=== PATIENT | male | born 1925 | race Caucasian/White ===

== ENCOUNTER 2017-06-11 14:15 | Emergency (ER) | payer OTHER ==
[~2017-06-11] VITALS: Ht 172.7 cm; Wt 77.5 kg
[2017-06-11 14:43] LABS: GLUCOSE,POINT OF CARE 76 MG/DL (70-110)
[2017-06-11] MEDS ORDERED: NOREPINEPHRINE 4 MG/D5%-WATER 250 ML IV PRN ×2 (14:44)
[2017-06-11] MEDS ORDERED: SODIUM CHLORIDE 0.9% 1,000 ML IV ONE ×2 (14:45→15:30)
[2017-06-11] MEDS ORDERED: FURO20 PO (15:06)
[2017-06-11] MEDS ORDERED: GLIP5 PO (15:06)
[2017-06-11] MEDS ORDERED: FINA5TAB41 PO (15:06)
[2017-06-11] MEDS ORDERED: METO25 PO (15:06)
[2017-06-11] MEDS ORDERED: SIMV-260 PO (15:06)
[2017-06-11 15:29] LABS: HEMOGLOBIN 12.6 g/dL (13.5-17.5); MEAN CORPUSCULAR HEMOGLOBIN 25.6 pg (26.0-34.0); MEAN CORPUSCULAR HGB CONC 32.3 G/dL (31.0-37.0); MEAN CORPUSCULAR VOLUME 79 fL (80-100); PLATELET COUNT (AUTO) 103 K/uL (150-450); RED BLOOD CELL COUNT(AUTO) 4.93 MIL/uL (4.50-5.90); RED CELL DISTRIBUTION WIDTH 19.9 % (11.5-14.5)
[2017-06-11 15:40] LABS: ANION GAP 16 mmol/L (8-16); CALCIUM, TOTAL 8.1 mg/dL (8.8-10.5); CARBON DIOXIDE 19 mmol/L (22-29); CHLORIDE 104 mmol/L (98-107); CREATININE 3.37 mg/dL (0.60-1.30); GLOMERULAR FILTR. RATE CALC 17 mL/min (>60); GLUCOSE,RANDOM 69 mg/dL (70-110); POTASSIUM 3.5 mmol/L (3.5-5.1); SODIUM SERUM 139 mmol/L (136-145); UREA NITROGEN, BLOOD 67 mg/dL (7-18)
[2017-06-11 15:59] LABS: B-TYPE NATRIURETIC PEPTIDE 1750 pg/mL (0-100)
[2017-06-11] MEDS ORDERED: CefTRIAXone SODIUM 1 GM/VIAL IVP ONE (16:00)
[2017-06-11] MEDS ORDERED: CefTRIAXone SODIUM 2 GM in DEXTROSE 5%-WATER 20 ML IV ONE (16:00)
[2017-06-11] MEDS ORDERED: AZITHROMYCIN 500 MG/NS 250 ML IV ONE (16:00)
[2017-06-11 16:05] LABS: ALANINE AMINOTRANSFERASE 14 U/L (12-78); ALBUMIN 1.9 g/dL (3.4-5.0); ALKALINE PHOSPHATASE 116 U/L (46-116); ASPARTATE AMINOTRANSFERASE 36 U/L (15-37); BILIRUBIN,TOTAL 2.5 mg/dL (0.1-1.0); CREATINE KINASE MB 2.4 ng/mL (0-5); CREATINE KINASE, TOTAL 154 U/L (39-308); TOTAL PROTEIN, SERUM 5.8 g/dL (6.4-8.2)
[2017-06-11] MEDS ORDERED: PHENYLEPHRINE 200 MG/D5%-WATER 250 ML IV PRN (16:15)
[2017-06-11 16:42] VITALS: BP 42/31
[2017-06-11 16:48] LABS: BAND NEUTROPHILS % (MANUAL) 5 % (1-5); BASOPHILS % (MANUAL) 2 % (0-2); EOSINOPHILS % (MANUAL) 1 % (1-6); LYMPHOCYTES % (MANUAL) 41 % (22-44); MONOCYTES % (MANUAL) 8 % (2-9); SEGMENTED NEUTROPHILS % 43 % (40-70)
[2017-06-11 16:50] LABS: PLATELET MORPHOLOGY COMMENT GIANT PLTS PRESENT
== END 2017-06-11 18:35 | disposition expired ==
LOC: EMS 14:18
DX: J96.90 Respiratory failure, unspecified, unspecified whether with hypoxia or hypercapnia (principal); R41.82 Altered mental status, unspecified
CPT/HCPCS: 71045; 80053; 82550; 82553; 82962; 83605; 83880; 84484; 85025; 93005; 94660; 96361; 96365; 96366; 96368; 99291; J0456; J0696; J2370; J3490; J7030; J7060